=== PATIENT | male | born 1975 | race Caucasian/White ===

== ENCOUNTER 2022-02-22 17:34 | Inpatient (IN) | payer OTHER ==
[~2022-02-22] VITALS: Ht 180.3 cm; Wt 127.0 kg
[2022-02-22] MEDS ORDERED: NITROGLYCERIN 0.4 MG SL TAB SL ONE (17:36)
[2022-02-22] MEDS ORDERED: ASPIRIN 325MG EC TAB PO ONE (17:36)
[2022-02-22] MEDS: NITROGLYCERIN 0.4 MG SL TAB SL PRN ×3 (17:40→17:52)
[2022-02-22] MEDS ORDERED: NITROGLYCERIN 1GM OINT 1 INCH/1GM TD ONE ×2 (17:56→18:00)
[2022-02-22] MEDS ORDERED: CLOPIDOGREL 300MG TAB PO ONE ×2 (18:00→21:00)
[2022-02-22] MEDS ORDERED: ASPIRIN 325MG TAB PO ONE (18:00)
[2022-02-22 18:19] LABS: BASOPHILS % (AUTO) 0.4 % (0.0-5.0); EOSINOPHILS % (AUTO) 1.9 % (0.0-8.0); HEMATOCRIT 54.5 % (42-54); LYMPHOCYTES % (AUTO) 31.8 % (21.0-51.0); MEAN CORPUSCULAR HEMOGLOBIN 30.3 pg (27.0-33.0); MEAN CORPUSCULAR HGB CONC 34.1 g/dL (32.0-36.0); MEAN CORPUSCULAR VOLUME 88.9 fL (79-99); MONOCYTES % (AUTO) 7.3 % (3.0-13.0); NEUTROPHILS % (AUTO) 58.2 % (40.0-77.0); PLATELET COUNT (AUTO) 308 K/uL (130-400); RED BLOOD CELL COUNT(AUTO) 6.13 MIL/uL (4.50-6.20); RED CELL DISTRIBUTION WIDTH 14.8 % (11.0-15.5); WHITE BLOOD COUNT (AUTO) 16.7 K/uL (4.8-10.8)
[2022-02-22 18:27] LABS: INR 0.93 (0.85-1.15); PROTHROMBIN TIME 10.2 SEC (9.6-11.6)
[2022-02-22 18:32] LABS: CREATININE 1.1 mg/dL (0.5-1.5); POTASSIUM 3.6 mmol/L (3.5-5.1)
[2022-02-22 18:39] LABS: ALBUMIN 4.2 g/dL (3.5-5.0); MAGNESIUM 2.1 mg/dL (1.80-2.40); TOTAL PROTEIN, SERUM 8.8 g/dL (6.0-8.3)
[2022-02-22] MEDS ORDERED: ENOXAPARIN SODIUM 120 MG/0.8ML SQ ONE (18:52)
[2022-02-22 18:54] LABS: B-TYPE NATRIURETIC PEPTIDE < 5 pg/mL (0-100)
[2022-02-22] MEDS ORDERED: ENOXAPARIN SODIUM 1 MG/KG SQ SCH (19:00)
[2022-02-22] MEDS ORDERED: MORPHINE 2 MG SYG IV PRN (20:00)
[2022-02-22] MEDS ORDERED: NITROGLYCERIN 0.4 MG SL TAB SL PRN (20:00)
[2022-02-22] MEDS ORDERED: ACETAMINOPHEN 325 MG TAB PO PRN ×2 (20:00)
[2022-02-22] MEDS ORDERED: HEPARIN 25,000 UNITS/250ML D5W 250 ML IV SCH (20:00)
[2022-02-22] MEDS ORDERED: ONDANSETRON 4MG INJ IV PRN (20:00)
[2022-02-22 20:29] LABS: CHOLESTEROL 196 mg/dL (<200); HDL CHOLESTEROL 24 mg/dL (29-71); LDL DIRECT 117 mg/dL (0-99); TRIGLYCERIDES 283 mg/dL (30-200)
[2022-02-22 20:32] LABS: HEMOGLOBIN A1C 5.9 % (4.0-6.0)
[2022-02-22] MEDS ORDERED: HEPARIN 5,000 UNIT VIAL ONE (20:42)
[2022-02-22] MEDS: 0.9%NACL 1000ML 1,000 ML IV SCH (21:00)
[2022-02-22] MEDS: FAMOTIDINE 20MG VIAL IV SCH (21:00)
[2022-02-22] MEDS: METOPROLOL TARTRATE 25 MG TAB PO SCH (21:00)
[2022-02-22] MEDS ORDERED: METOPROLOL TARTRATE 25 MG TAB PO SCH (21:00)
[2022-02-22] MEDS: ATORVASTATIN 40 MG TABLET PO SCH (21:03)
[2022-02-22 21:11] LABS: INR 0.99 (0.85-1.15); PROTHROMBIN TIME 10.8 SEC (9.6-11.6)
[2022-02-22 21:12] LABS: PARTIAL THROMBOPLASTIN TIME 30.8 SEC (26.3-35.5)
[2022-02-22 23:45] VITALS: BP 118/63
[2022-02-23] VITALS (30 sets, daily range): BP systolic 104–160; BP diastolic 57–96
[2022-02-23] MEDS ORDERED: HYDROMORPHONE 0.5 MG SYG (0.5MG/0.5ML) IVP ONE (00:30)
[2022-02-23] MEDS ORDERED: HEPARIN 5,000 UNIT VIAL ONE (04:02)
[2022-02-23] MEDS ORDERED: HEPARIN 5,000 UNIT VIAL IV ONE (04:30)
[2022-02-23] MEDS: 0.9%NACL 1000ML 1,000 ML IV SCH (06:01)
[2022-02-23] MEDS ORDERED: NICARDIPINE 25MG INJ IV ONE (07:04)
[2022-02-23] MEDS ORDERED: HEPARIN 10,000 UNIT/10ML (1,000 UNIT/ML) VIAL ONE (07:04)
[2022-02-23] MEDS ORDERED: LIDOCAINE HCL 400MG/20ML VIAL ONE (07:05)
[2022-02-23] MEDS ORDERED: IOHEXOL 350 MG/ML 100ML INFUS..BTL IV ONE ×2 (07:05→08:39)
[2022-02-23] MEDS ORDERED: NITROGLYCERIN 50MG VIAL ONE (07:05)
[2022-02-23] MEDS ORDERED: MIDAZOLAM HCL 1 MG/ML 2ML VIAL ONE (07:16)
[2022-02-23] MEDS ORDERED: FENTANYL CITRATE PF 50 MCG/1 ML 2ML VIAL ONE (07:16)
[2022-02-23 07:45] LABS: HEMATOCRIT 46.3 % (42-54); MEAN CORPUSCULAR HEMOGLOBIN 30.6 pg (27.0-33.0); MEAN CORPUSCULAR HGB CONC 33.7 g/dL (32.0-36.0); MEAN CORPUSCULAR VOLUME 90.8 fL (79-99); RED BLOOD CELL COUNT(AUTO) 5.1 MIL/uL (4.50-6.20); RED CELL DISTRIBUTION WIDTH 14.5 % (11.0-15.5); WHITE BLOOD COUNT (AUTO) 15.3 K/uL (4.8-10.8)
[2022-02-23 07:55] LABS: CREATININE 0.9 mg/dL (0.5-1.5); POTASSIUM 4.1 mmol/L (3.5-5.1)
[2022-02-23] MEDS ORDERED: MORPHINE 4 MG SYG ONE (08:45)
[2022-02-23] MEDS ORDERED: PRASUGREL HCL 10 MG TABLET ONE (08:54)
[2022-02-23] MEDS ORDERED: ENOXAPARIN SODIUM 40 MG/0.4 ML SYRINGE SQ SCH (09:00)
[2022-02-23] MEDS: METOPROLOL TARTRATE 25 MG TAB PO SCH ×2 (09:00→20:20)
[2022-02-23] MEDS: FAMOTIDINE 20MG VIAL IV SCH ×2 (09:00→20:20)
[2022-02-23] MEDS: ASPIRIN 81 MG EC TAB PO SCH (09:00)
[2022-02-23] MEDS ORDERED: ASPIRIN 81MG CHEW TAB ONE (09:23)
[2022-02-23] MEDS ORDERED: 0.9%NACL 1000ML 1,000 ML IV SCH (10:00)
[2022-02-23] MEDS: ATORVASTATIN 40 MG TABLET PO SCH (20:20)
[2022-02-24] VITALS (7 sets, daily range): BP systolic 110–129; BP diastolic 52–89
[2022-02-24 04:00] LABS: HEMATOCRIT 45.6 % (42-54); MEAN CORPUSCULAR HGB CONC 33.3 g/dL (32.0-36.0); MEAN CORPUSCULAR VOLUME 89.9 fL (79-99); RED BLOOD CELL COUNT(AUTO) 5.07 MIL/uL (4.50-6.20); RED CELL DISTRIBUTION WIDTH 14.6 % (11.0-15.5); WHITE BLOOD COUNT (AUTO) 10.3 K/uL (4.8-10.8)
[2022-02-24 04:11] LABS: MAGNESIUM 2.1 mg/dL (1.80-2.40)
[2022-02-24] MEDS: PRASUGREL HCL 10 MG TABLET PO SCH (09:19)
[2022-02-24] MEDS: ASPIRIN 81 MG EC TAB PO SCH (09:20)
[2022-02-24] MEDS: FAMOTIDINE 20MG VIAL IV SCH ×3 (09:20→21:19)
[2022-02-24] MEDS: METOPROLOL SUCCINATE 25 MG TAB.SR.24H PO SCH (09:20)
[2022-02-24] MEDS: PANTOPRAZOLE 40 MG TAB DR PO SCH (09:20)
[2022-02-24] MEDS: LOSARTAN 25 MG TABLET PO SCH (14:19)
[2022-02-24] MEDS: ATORVASTATIN 40 MG TABLET PO SCH (21:19)
[2022-02-25 00:12] VITALS: BP 112/70
[2022-02-25 03:12] VITALS: BP 110/70
[2022-02-25 04:01] LABS: HEMATOCRIT 46.6 % (42-54); MEAN CORPUSCULAR HEMOGLOBIN 30.5 pg (27.0-33.0); MEAN CORPUSCULAR HGB CONC 34.1 g/dL (32.0-36.0); MEAN CORPUSCULAR VOLUME 89.3 fL (79-99); RED BLOOD CELL COUNT(AUTO) 5.22 MIL/uL (4.50-6.20); RED CELL DISTRIBUTION WIDTH 14.2 % (11.0-15.5); WHITE BLOOD COUNT (AUTO) 13.8 K/uL (4.8-10.8)
[2022-02-25 04:10] LABS: POTASSIUM 4.2 mmol/L (3.5-5.1)
[2022-02-25] MEDS ORDERED: METO-408 PO (07:39)
[2022-02-25] MEDS ORDERED: PRAS10TA6 PO (07:39)
[2022-02-25] MEDS ORDERED: AEC81 PO (07:39)
[2022-02-25] MEDS ORDERED: LOSA25TA41 PO (07:39)
[2022-02-25] MEDS ORDERED: ATOR40TA71 PO (07:39)
[2022-02-25 08:00] VITALS: BP 115/72
[2022-02-25] MEDS: PRASUGREL HCL 10 MG TABLET PO SCH (08:50)
[2022-02-25] MEDS: ASPIRIN 81 MG EC TAB PO SCH (08:50)
[2022-02-25] MEDS: METOPROLOL SUCCINATE 25 MG TAB.SR.24H PO SCH (08:50)
[2022-02-25] MEDS: PANTOPRAZOLE 40 MG TAB DR PO SCH (08:50)
[2022-02-25] MEDS: LOSARTAN 25 MG TABLET PO SCH (08:50)
[2022-02-25] MEDS: FAMOTIDINE 20MG VIAL IV SCH (08:50)
[2022-02-25 11:54] VITALS: BP 109/48
== END 2022-02-25 12:15 | disposition home or self-care (01) | DRG 247 ==
LOC: EDH 17:34 → EDHIP 17:35 → 2BH 22:55 → 2DH 02-23 10:04
PROVIDERS: ADMIT Hospitalist; ATTEND Hospitalist
PROC: 4A023N7 Measurement of Cardiac Sampling and Pressure, Left Heart, Percutaneous Approach (ICD-10-PCS; principal; 2022-02-23)
PROC: 027034Z Dilation of Coronary Artery, One Artery with Drug-eluting Intraluminal Device, Percutaneous Approach (ICD-10-PCS; 2022-02-23)
PROC: B2111ZZ Fluoroscopy of Multiple Coronary Arteries using Low Osmolar Contrast (ICD-10-PCS; 2022-02-23)
PROC: B2151ZZ Fluoroscopy of Left Heart using Low Osmolar Contrast (ICD-10-PCS; 2022-02-23)
PROC: B240ZZ3 Ultrasonography of Single Coronary Artery, Intravascular (ICD-10-PCS; 2022-02-23)
DX: I21.4 Non-ST elevation (NSTEMI) myocardial infarction (principal); Z68.39 Body mass index [BMI] 39.0-39.9, adult; E66.01 Morbid (severe) obesity due to excess calories; F17.210 Nicotine dependence, cigarettes, uncomplicated; I10 Essential (primary) hypertension; Z20.822 Contact with and (suspected) exposure to COVID-19; E78.5 Hyperlipidemia, unspecified; I25.5 Ischemic cardiomyopathy
CPT/HCPCS: 36415; 71045; 80048; 80053; 80061; 82550; 83036; 83735; 83880; 84484; 85025; 85027; 85347; 85378; 85610; 85730; 87635; 92978; 93005; 93306; 93356; 93458; 99156; 99157; 99291; C1769; C1887; C9606; G0378; J1170; J1644; J1650; J2250; J2270; J3010; J3490; J7030; Q9967